=== PATIENT | male | born 1965 | race Caucasian/White ===

== ENCOUNTER 2023-02-07 10:49 | Observation (INO) | payer OTHER ==
[2023-02-07 11:37] LABS: INR 0.9 (<1.2); Partial Thromboplastin Time 22.3 sec (22.0-30.0); Prothrombin Time 9.8 sec (9.0-12.0)
[2023-02-07 11:40] LABS: Albumin 4.1 g/dL (3.5-5.0); Magnesium 1.8 mg/dL (1.6-2.3); Potassium 4.2 mmol/L (3.5-5.1); Total Bilirubin 0.3 mg/dL (0.2-1.3); Total Protein 6.6 g/dL (6.3-8.2)
--- NOTE | 2023-02-07 11:55 | XR ---
EXAMINATION TYPE: XR chest 2V DATE OF EXAM: 02/07/2023 11:45 AM COMPARISON: None TECHNIQUE: XR chest 2V Frontal and lateral views of the chest. CLINICAL INDICATION:Male, 57 years old with history of Chest Pain; FINDINGS: Lungs/Pleura: There is no evidence of pleural effusion, focal consolidation, or pneumothorax. Pulmonary vascularity: Unremarkable. Heart/mediastinum: Cardiomediastinal silhouette is unremarkable. Musculoskeletal: No acute osseous pathology. IMPRESSION: No acute cardiopulmonary disease/process.
[2023-02-07 12:03] LABS: Basophils % (A) 0 %; Eosinophils # (A) 0.1 k/uL (0-0.7); Eosinophils % (A) 1 %; HCT 33.1 % (39.0-53.0); HGB 11.2 gm/dL (13.0-17.5); Lymphocytes # (A) 1.6 k/uL (1.0-4.8); Lymphocytes % (A) 19 %; MCH 32.6 pg (25.0-35.0); MCHC 33.8 g/dL (31.0-37.0); MCV 96.5 fL (80.0-100.0); Mean Platelet Volume 7.4; Monocytes # (A) 0.7 k/uL (0-1.0); Monocytes % (A) 8 %; Neutrophils # (A) 6.1 k/uL (1.3-7.7); Neutrophils % (A) 70 %; Platelet Count 270 k/uL (150-450); RBC 3.43 m/uL (4.30-5.90); RDW 12.5 % (11.5-15.5); WBC 8.7 k/uL (3.8-10.6)
[2023-02-07] MEDS ORDERED: ASPIRIN 81 MG PO STA (13:34)
[2023-02-07] MEDS ORDERED: NITROGLYCERIN SL TABS 0.4 MG TAB SUBLINGUAL PRN (13:34)
[2023-02-07] MEDS ORDERED: SODIUM CHLORIDE 0.9% 500 ML 500 ML IV STA (13:35)
[2023-02-07] MEDS ORDERED: SODIUM CHLORIDE 0.9% 1,000 ML IV STA (13:41)
--- NOTE | 2023-02-07 13:54 | ED ---
General Adult HPI - General Chief complaint: Chest Pain Stated complaint: Chest Pain Time Seen by Provider: 02/07/23 13:25 Source: patient, RN notes reviewed, old records reviewed Mode of arrival: ambulatory Limitations: no limitations - History of Present Illness Initial comments: Patient is a 57-year-old male with past medical history remarkable for diabetes who presents emergency Department complaining of chest pain, shortness of breath that began last night. States he has had this chest pain intermittently over the last few months, however it has been more persistent over the last day. States it normally lasts for 5 minutes and goes away, however he had it this morning at approximately 2 AM. States his left-sided chest pain, sharp in natu re, not worse with movement. No palliative or provocative factors. Does feel short of breath with it. Denies any radiation of the pain. It is located at the left side of his chest. Denies any nausea, vomiting, diaphoresis. No history cardiac disease. Cardiac disease in the family. Has no other acute complaints at this time patient was worked up in triage initially and I evaluated him when he was placed in the room. States the pain is less at this moment, however has been persistent all day. - Related Data Home Medications Medication Instructions Recorded Confirmed Cholecalciferol [Vitamin D3 (25 50 mcg PO DAILY 02/07/23 02/07/23 Mcg = 1000 Iu)] Ferrous Sulfate [Feosol] 325 mg PO DAILY 02/07/23 02/07/23 Folic Acid 1 mg PO DAILY 02/07/23 02/07/23 Insulin Glargine,Hum.rec.anlog 30 units SQ HS 02/07/23 02/07/23 [Lantus Solostar Pen] Insulin Regular, Human [Novolin R] See Protocol SQ ACHS 02/07/23 02/07/23 Levothyroxine Sodium [Synthroid] 200 mcg PO DAILY 02/07/23 02/07/23 Losartan [Cozaar] 25 mg PO DAILY 02/07/23 02/07/23 Omeprazole 20 mg PO DAILY 02/07/23 02/07/23 Oxybutynin Chloride 5 mg PO DAILY 02/07/23 02/07/23 Simvastatin [Zocor] 40 mg PO DAILY 02/07/23 02/07/23 Allergies Allergy/AdvReac Type Severity Reaction Status Date / Time No Known Allergies Allergy Verified 02/07/23 15:16 Review of Systems ROS Statement: Those systems with pertinent positive or pertinent negative responses have been documented in the HPI. Review of Systems: CONST: Denies fever EYES: Denies blurry vision ENT: Denies nasal congestion C/V: Endorses chest pain RESP: Denies shortness of breath GI: Denies abdominal pain : Denies dysuria SKIN: Denies rash. MSK: Denies joint pain. NEURO: Denies headache ROS Other: All systems not noted in ROS Statement are negative. Past Medical History Past Medical History: Diabetes Mellitus History of Any Multi-Drug Resistant Organisms: None Reported Past Surgical History: No Surgical Hx Reported Past Psychological History: No Psychological Hx Reported Smoking Status: Former smoker Past Alcohol Use History: None Reported Past Drug Use History: None Reported General Exam - General Exam Comments Initial Comments: General: Appears in no acute distress. HEAD: Normal with no signs of head trauma. EYES: PERRLA, EOMI, conjunctiva normal, no discharge. ENT: Hearing grossly intact, normal oropharynx. RESPIRATORY: Clear breath sounds bilaterally. No wheezes, rales, or rhonchi. C/V: Regular rate and rhythm. S1 and S2 auscultated, no edema, peripheral pulses 2+ and intact throughout ABD: Abd is soft, nontender, nondistended EXT: Normal range of motion, no obvious deformity SKIN: No rashes or lesions observed on exposed skin. NEURO: Alert and oriented x 4. Cranial nerves II-XII intact. No focal sensory or strength deficits. Limitations: no limitations Course Vital Signs 02/07/23 02/07/23 10:54 15:00 Temperature 97 F L Pulse Rate 101 H 53 L Respiratory 18 18 Rate Blood Pressure 124/76 144/84 O2 Sat by Pulse 99 96 Oximetry Medical Decision Making - Medical Decision Making Was pt. sent in by a medical professional or institution (, PA, [employer] [facility], urgent care, hospital, or fci...) When possible be specific @ -No Did you speak to anyone other than the patient for history (EMS, parent, family, police, friend...)? What history was obtained from this source @ -No Did you review nursing and triage notes (agree or disagree)? Why? @ -I reviewed and agree with nursing and triage notes Were old charts reviewed (outside hosp., previous admission, EMS record, old EKG, old radiological studies, urgent care reports/EKG's, fci records)? Report findings @ -No old charts were reviewed Differential Diagnosis (chest pain, altered mental status, abdominal pain women, abdominal pain men, vaginal bleeding, weakness, fever, dyspnea, syncope, headache, dizziness, GI bleed, back pain, seizure, CVA, palpatations, mental health, musculoskeletal)? @ -Differential Chest Pain: Stable Angina, Unstable Angina, STEMI, NSTEMI Aortic Dissection, Pneumothorax, Musculoskeletal, Esophageal Spasm GERD, Cholecystitis, Pancreatitis, Zoster, this is not meant to be an all-inclusive list. EKG interpreted by me (3pts min.). @ -As above X-rays interpreted by me (1pt min.). @ -Chest x-ray reveals no obvious acute cardiopulmonary process. CT interpreted by me (1pt min.). @ -None done U/S interpreted by me (1pt. min.). @ -None done What testing was considered but not performed or refused? (CT, X-rays, U/S, labs)? Why? @ -None What meds were considered but not given or refused? Why? @ -None Did you discuss the management of the patient with other professionals (professionals i.e. , PA, [employer] [facility], lab, RT, psych nurse, social worker school, dehydrator tender, teacher, intelligence support officer, top case assembler)? Give summary @ -No Was smoking cessation discussed for >3mins.? @ -No Was critical care preformed (if so, how long)? @ -No Were there social determinants of health that impacted care today? How? (Homelessness, low income, unemployed, alcoholism, drug addiction, transportation, low edu. Level, literacy, decrease access to med. care, [facility], rehab)? @ -No Was there de-escalation of care discussed even if they declined (Discuss DNR or withdrawal of care, Hospice)? DNR status @ -No What co-morbidities impacted this encounter? (DM, HTN, Smoking, COPD, CAD, Cancer, CVA, ARF, Chemo, Hep., AIDS, mental health diagnosis, sleep apnea, morbid obesity)? @ -None Was patient admitted / discharged? Hospital course, mention meds given and route, prescriptions, significant lab abnormalities, going to OR and other pertinent info. @ -Based on the patient's presentation and physical exam, I'm concerned for croup him etiology for his current symptoms. Workup was started in triage. I evaluated patient was placed in room 17. Patient's laboratory studies are remarkable for a mild anemia with a hemoglobin 11.2. Troponin is undetectable. D-dimer is within normal limits for the patient. Patient is hyperglycemic. No other findings at this time on labs. Chest x-ray unremarkable. EKG within acceptable limits. Patient is still having chest pain. We will trial him with a dose of aspirin as well as nitroglycerin tablets. He was in agreement this plan. Vital signs within acceptable limits. Heart score is boarderline 4. Patient's chest pain did improve to a more manageable 2 out of 10 with nitroglycerin tablets. We will start him on Nitropaste. Due to his elevated heart score as well as his response to nitro, didn't want to admit him to the hospital for cardiac observation. He was in agreement this plan. We'll trend his troponin. Cardiology will be consulted to evaluate him the morning. I spoke with the admitting physician, Dr. Kim who accepted the patient. Patient was admitted in stable condition. Undiagnosed new problem with uncertain prognosis? @ -No Drug Therapy requiring intensive monitoring for toxicity (Heparin, Nitro, Insulin, Cardizem)? @ -No Were any procedures done? @ -No Diagnosis/symptom? @ -Chest pain Acute, or Chronic, or Acute on Chronic? @ -Acute Uncomplicated (without systemic symptoms) or Complicated (systemic symptoms)? @ -Uncomplicated Side effects of treatment? @ -No Exacerbation, Progression, or Severe Exacerbation? @ -No Poses a threat to life or bodily function? How? (Chest pain, USA, ID, pneumonia, PE, COPD, DKA, ARF, appy, cholecystitis, CVA, Diverticulitis, Homicidal, Suicidal, threat to staff... and all critical care pts) @ - Yes potentally, depending on the etiology - Lab Data Result diagrams: 02/07/23 11:15 02/07/23 11:15 Lab Results 02/07/23 02/07/23 02/07/23 Range/Units 11:15 11:15 11:15 WBC 8.7 (3.8-10.6) k/uL RBC 3.43 L (4.30-5.90) m/uL Hgb 11.2 L (13.0-17.5) gm/dL Hct 33.1 L (39.0-53.0) % MCV 96.5 (80.0-100.0) fL MCH 32.6 (25.0-35.0) pg MCHC 33.8 (31.0-37.0) g/dL RDW 12.5 (11.5-15.5) % Plt Count 270 (150-450) k/uL MPV 7.4 Neutrophils % 70 % Lymphocytes % 19 % Monocytes % 8 % Eosinophils % 1 % Basophils % 0 % Neutrophils # 6.1 (1.3-7.7) k/uL Lymphocytes # 1.6 (1.0-4.8) k/uL Monocytes # 0.7 (0-1.0) k/uL Eosinophils # 0.1 (0-0.7) k/uL Basophils # 0.0 (0-0.2) k/uL PT 9.8 (9.0-12.0) sec INR 0.9 (<1.2) APTT 22.3 (22.0-30.0) sec D-Dimer (<0.60) mg/L FEU Sodium 135 L (137-145) mmol/L Potassium 4.2 (3.5-5.1) mmol/L Chloride 105 (98-107) mmol/L Carbon Dioxide 18 L (22-30) mmol/L Anion Gap 12 mmol/L BUN 26 H (9-20) mg/dL Creatinine 1.23 (0.66-1.25) mg/dL Est GFR (CKD-EPI)AfAm 76 (>60 ml/min/1.73 sqM) Est GFR (CKD-EPI)NonAf 66 (>60 ml/min/1.73 sqM) Glucose 380 H (74-99) mg/dL Calcium 9.0 (8.4-10.2) mg/dL Magnesium 1.8 (1.6-2.3) mg/dL Total Bilirubin 0.3 (0.2-1.3) mg/dL AST 29 (17-59) U/L ALT 28 (4-49) U/L Alkaline Phosphatase 112 (38-126) U/L Troponin I (0.000-0.034) ng/mL Total Protein 6.6 (6.3-8.2) g/dL Albumin 4.1 (3.5-5.0) g/dL 02/07/23 02/07/23 Range/Units 11:15 11:15 WBC (3.8-10.6) k/uL RBC (4.30-5.90) m/uL Hgb (13.0-17.5) gm/dL Hct (39.0-53.0) % MCV (80.0-100.0) fL MCH (25.0-35.0) pg MCHC (31.0-37.0) g/dL RDW (11.5-15.5) % Plt Count (150-450) k/uL MPV Neutrophils % % Lymphocytes % % Monocytes % % Eosinophils % % Basophils % % Neutrophils # (1.3-7.7) k/uL Lymphocytes # (1.0-4.8) k/uL Monocytes # (0-1.0) k/uL Eosinophils # (0-0.7) k/uL Basophils # (0-0.2) k/uL PT (9.0-12.0) sec INR (<1.2) APTT (22.0-30.0) sec D-Dimer 0.39 (<0.60) mg/L FEU Sodium (137-145) mmol/L Potassium (3.5-5.1) mmol/L Chloride (98-107) mmol/L Carbon Dioxide (22-30) mmol/L Anion Gap mmol/L BUN (9-20) mg/dL Creatinine (0.66-1.25) mg/dL Est GFR (CKD-EPI)AfAm (>60 ml/min/1.73 sqM) Est GFR (CKD-EPI)NonAf (>60 ml/min/1.73 sqM) Glucose (74-99) mg/dL Calcium (8.4-10.2) mg/dL Magnesium (1.6-2.3) mg/dL Total Bilirubin (0.2-1.3) mg/dL AST (17-59) U/L ALT (4-49) U/L Alkaline Phosphatase (38-126) U/L Troponin I <0.012 (0.000-0.034) ng/mL Total Protein (6.3-8.2) g/dL Albumin (3.5-5.0) g/dL - EKG Data -: EKG Interpreted by Me EKG Comments: 12-lead Electrocardiogram Interpretation Note EKG was reviewed and interpreted by myself. 12-lead ECG performed at 1059 is interpreted by me as revealing normal sinus rhythm at a rate of 75 beats per minute. Celina is normal. HI interval is 143 ms, QRS duration is 87 ms, QTc is 396 ms.. There were no ST or T wave abnormalities to suggest myocardial ischemia or injury. R wave progression across the precordium was satisfactory. By my interpretation this EKG is non-diagnostic for acute ischemia. Disposition Clinical Impression: Chest pain Disposition: ADMITTED IP TO THIS HOSP Condition: Stable Time of Disposition: 14:30
[2023-02-07] MEDS ORDERED: NALOXONE 0.4 MG/ML 1 ML VIAL IV PRN (14:56)
[2023-02-07] MEDS ORDERED: DEXTROSE 50% SYRINGE 50 ML IVP PRN ×4 (14:59→21:01)
[2023-02-07 15:57] LABS: Glucose,Whole Blood 297 mg/dL (70-110)
[2023-02-07 17:19] LABS: Glucose,Whole Blood 292 mg/dL (70-110)
[2023-02-07] MEDS: HEPARIN SODIUM,PORCINE/PF 5,000 UNIT/0.5 ML SYRINGE SQ SCH ×2 (17:28→21:18)
[2023-02-07] MEDS: NITROGLYCERIN OINT 1 INCH/GM PACKET TOPICAL SCH (17:29)
[2023-02-07] MEDS ORDERED: INSULIN ASPART (NovoLOG) 100 UNIT/ML VIAL SQ SCH (17:30)
[2023-02-07 20:25] LABS: Glucose,Whole Blood 324 mg/dL (70-110)
[2023-02-07] MEDS ORDERED: traZODone HCL 100 MG TAB PO SCH (21:00)
[2023-02-07] MEDS ORDERED: INSULIN DETEMIR (LEVEMIR) 100 UNIT/ML SYR SQ SCH ×2 (21:00)
[2023-02-07] MEDS: INSULIN ASPART (NovoLOG) 100 UNIT/ML VIAL SQ SCH (21:16)
--- NOTE | 2023-02-07 23:39 | P.HPIM ---
History of Present Illness H&P Date: 02/07/23 Chief Complaint: Chest pain Patient is a 57-year-old male with a known history of diabetes type 2 insulin- dependent, hypertension, hyperlipidemia, hypothyroidism and prior history of smoking presents to ER with complaints of chest pain Started around 2 AM last night. Patient is also having shortness of breath. Patient states that he has been having on and off chest pain for the past 5 months. He is to get chest pain every month mainly left-sided's chest pain, sharp, squeezing type and pain lasts for about 5 minutes presented with shortness of breath and relieved by itself. For the last month he has been having pains once or twice a week and last night his pain is back again longer duration. Patient came to ER for evaluation. Denies any radiation of the pain. Denies any associated nausea vomiting or diaphoresis or dizziness or lightheadedness. Denies any prior history of heart disease. Any recent illnesses. No cough or sputum production. No leg swelling. On admission patient was tachycardic with heart rate 101. Chest x-ray showed no acute cardiopulmonary disease/process. EKG showed sinus rhythm with nonspecific T wave abnormality. Laboratory test showed WBC 8.7 hemoglobin 11.2 and platelets 270, D-dimer level is 0.39 Sodium 135, potassium 4.2 chloride 105 bicarb is 18 BUN 26 and creatinine 1.23 and blood sugar was 380 on admission Magnesium 1.8 and laboring after not elevated Troponins x3 negative and TSH level is 2.090 Atypical chest pain. Rule out ACS Hyperglycemia with uncontrolled diabetes type 2 insulin-dependent A1c level is 10.3 Normocytic anemia with hemoglobin of 11.2 Hypertension Hypothyroidism Hyperlipidemia Prior history of smoking DVT prophylaxis with heparin subcu GI prophylaxis patient is already on Protonix Plan: Patient will be continued on telemetry monitoring. Was given IV hydration in the ER. Serial troponins and EKG and cardiology evaluation for chest pain. Started back on Levemir and preprandial insulin and sliding scale was added for blood pressure control. Titrate dose as needed. Follow-up closely. Past Medical History Past Medical History: Diabetes Mellitus History of Any Multi-Drug Resistant Organisms: None Reported Past Surgical History: No Surgical Hx Reported Past Anesthesia/Blood Transfusion Reactions: No Reported Reaction Past Psychological History: No Psychological Hx Reported Smoking Status: Former smoker Past Alcohol Use History: None Reported Past Drug Use History: None Reported Medications and Allergies Home Medications Medication Instructions Recorded Confirmed Type Cholecalciferol [Vitamin D3 (25 50 mcg PO DAILY 02/07/23 02/07/23 History Mcg = 1000 Iu)] Ferrous Sulfate [Feosol] 325 mg PO DAILY 02/07/23 02/07/23 History Folic Acid 1 mg PO DAILY 02/07/23 02/07/23 History Insulin Glargine,Hum.rec.anlog 30 units SQ HS 02/07/23 02/07/23 History [Lantus Solostar Pen] Insulin Regular, Human [Novolin R] See Protocol SQ ACHS 02/07/23 02/07/23 History Levothyroxine Sodium [Synthroid] 200 mcg PO DAILY 02/07/23 02/07/23 History Losartan [Cozaar] 25 mg PO DAILY 02/07/23 02/07/23 History Omeprazole 20 mg PO DAILY 02/07/23 02/07/23 History Oxybutynin Chloride 5 mg PO DAILY 02/07/23 02/07/23 History Simvastatin [Zocor] 40 mg PO DAILY 02/07/23 02/07/23 History Allergies Allergy/AdvReac Type Severity Reaction Status Date / Time No Known Allergies Allergy Verified 02/07/23 15:16 Physical Exam Vitals: Vital Signs Temp Pulse Pulse Resp BP BP Pulse Ox 02/07/23 18:55 97.6 F 62 16 134/66 98 02/07/23 17:10 98.1 F 57 L 16 137/78 98 02/07/23 15:00 53 L 18 144/84 96 02/07/23 10:54 97 F L 101 H 18 124/76 99 Intake and Output 02/07/23 02/07/23 02/08/23 14:59 22:59 06:59 Intake Total 240 Balance 240 Intake: Oral 240 Other: # Voids 1 Weight 74.843 kg 74.843 kg Results CBC & Chem 7: 02/07/23 11:15 02/07/23 11:15 Labs: Abnormal Lab Results - Last 24 Hours (Table) 02/07/23 02/07/23 02/07/23 Range/Units 11:15 11:15 11:15 RBC 3.43 L (4.30-5.90) m/uL Hgb 11.2 L (13.0-17.5) gm/dL Hct 33.1 L (39.0-53.0) % Sodium 135 L (137-145) mmol/L Carbon Dioxide 18 L (22-30) mmol/L BUN 26 H (9-20) mg/dL Glucose 380 H (74-99) mg/dL POC Glucose (mg/dL) (70-110) mg/dL Hemoglobin A1c 10.3 H (0.0-6.0) % 02/07/23 02/07/23 02/07/23 Range/Units 15:54 17:18 20:24 RBC (4.30-5.90) m/uL Hgb (13.0-17.5) gm/dL Hct (39.0-53.0) % Sodium (137-145) mmol/L Carbon Dioxide (22-30) mmol/L BUN (9-20) mg/dL Glucose (74-99) mg/dL POC Glucose (mg/dL) 297 H 292 H 324 H (70-110) mg/dL Hemoglobin A1c (0.0-6.0) % Thrombosis Risk Factor Assmnt - Choose All That Apply Any of the Below Risk Factors Present?: Yes Each Factor Represents 1 point: Age 41-60 years Other Risk Factors: No Other congenital or acquired thrombophilia - If yes, enter type in comment: No Thrombosis Risk Factor Assessment Total Risk Factor Score: 1 Thrombosis Risk Factor Assessment Level: Low Risk
[2023-02-08] MEDS: NITROGLYCERIN OINT 1 INCH/GM PACKET TOPICAL SCH ×2 (01:05→08:19)
[2023-02-08 06:01] LABS: Glucose,Whole Blood 360 mg/dL (70-110)
[2023-02-08] MEDS: INSULIN ASPART (NovoLOG) 100 UNIT/ML VIAL SQ SCH ×2 (06:04→12:01)
[2023-02-08] MEDS ORDERED: LEVOTHYROXINE 100 MCG TAB PO SCH (06:30)
[2023-02-08] MEDS ORDERED: INSULIN ASPART (NovoLOG) 100 UNIT/ML VIAL SQ SCH ×3 (07:30→21:30)
[2023-02-08] MEDS ORDERED: PANTOPRAZOLE 40 MG TABLET PO SCH (07:30)
--- NOTE | 2023-02-08 08:11 | P.CRDCN ---
History of Present Illness Consult date: 02/08/23 Chief complaint: Chest pain History of present illness: The patient is a very pleasant 57-year-old gentleman with a past medical history significant for diabetes and hypertension and dyslipidemia and significant family history of coronary artery disease presented to the emergency department complaining of chest discomfort. That started a few months ago and lately for the last few weeks has been more often and more intense. The patient described the discomfort as a pressure in the middle of the chest with no radiation and no associated symptoms. The only and concerning part about is that the discomfort is not exertion related and has been happening mostly with resting and not with exertion since it was started. No specific symptoms of shortness of breath or dizziness or lightheadedness or any feeling of heart racing or fluttering or any presyncope or syncope. He presented to the emergency department where he was given some nitroglycerin sublingual was mild improvement but not complete resolution of the chest discomfort. He underwent a workup including EKG showing sinus rhythm with nonspecific ST and T wave abnormalities and blood work also included troponin came in to be unremarkable the chest x-ray did not show any acute abnormalities. The patient was seen and evaluated this morning. His vitals are stable. The examination is remarkable for regular rhythm with clear breathing sounds bilaterally and soft nontender abdomen and no lower extremity edema noted Assessment Intermittent episodes of chest discomfort appeared to be atypical Multiple risk factors for CAD including diabetes and hypertension and Significant family history of CAD Plan Acute coronary event was ruled out Continue the current medical regimen Follow-up on the echocardiogram which was performed earlier Obtain a stress test to rule out severe CAD Past Medical History Past Medical History: Diabetes Mellitus History of Any Multi-Drug Resistant Organisms: None Reported Past Surgical History: No Surgical Hx Reported Past Anesthesia/Blood Transfusion Reactions: No Reported Reaction Past Psychological History: No Psychological Hx Reported Smoking Status: Former smoker Past Alcohol Use History: None Reported Past Drug Use History: None Reported Medications and Allergies Home Medications Medication Instructions Recorded Confirmed Type Cholecalciferol [Vitamin D3 (25 50 mcg PO DAILY 02/07/23 02/07/23 History Mcg = 1000 Iu)] Ferrous Sulfate [Feosol] 325 mg PO DAILY 02/07/23 02/07/23 History Folic Acid 1 mg PO DAILY 02/07/23 02/07/23 History Insulin Glargine,Hum.rec.anlog 30 units SQ HS 02/07/23 02/07/23 History [Lantus Solostar Pen] Insulin Regular, Human [Novolin R] See Protocol SQ ACHS 02/07/23 02/07/23 History Levothyroxine Sodium [Synthroid] 200 mcg PO DAILY 02/07/23 02/07/23 History Losartan [Cozaar] 25 mg PO DAILY 02/07/23 02/07/23 History Omeprazole 20 mg PO DAILY 02/07/23 02/07/23 History Oxybutynin Chloride 5 mg PO DAILY 02/07/23 02/07/23 History Simvastatin [Zocor] 40 mg PO DAILY 02/07/23 02/07/23 History Allergies Allergy/AdvReac Type Severity Reaction Status Date / Time No Known Allergies Allergy Verified 02/07/23 15:16 Physical Exam Vitals: Vital Signs Temp Pulse Pulse Resp BP BP Pulse Ox 02/08/23 02:21 97.8 F 64 15 128/65 97 02/07/23 18:55 97.6 F 62 16 134/66 98 02/07/23 17:10 98.1 F 57 L 16 137/78 98 02/07/23 15:00 53 L 18 144/84 96 02/07/23 10:54 97 F L 101 H 18 124/76 99 Intake and Output 02/07/23 02/08/23 02/08/23 22:59 06:59 14:59 Intake Total 240 Balance 240 Intake: Oral 240 Other: # Voids 1 1 Weight 74.843 kg Results 02/07/23 11:15 02/07/23 11:15 Cardiac Enzymes 02/07/23 02/07/23 02/07/23 Range/Units 11:15 11:15 15:30 AST 29 (17-59) U/L Troponin I <0.012 <0.012 (0.000-0.034) ng/mL 02/07/23 Range/Units 18:19 AST (17-59) U/L Troponin I <0.012 (0.000-0.034) ng/mL Coagulation 02/07/23 Range/Units 11:15 PT 9.8 (9.0-12.0) sec APTT 22.3 (22.0-30.0) sec CBC 02/07/23 Range/Units 11:15 WBC 8.7 (3.8-10.6) k/uL RBC 3.43 L (4.30-5.90) m/uL Hgb 11.2 L (13.0-17.5) gm/dL Hct 33.1 L (39.0-53.0) % Plt Count 270 (150-450) k/uL Comprehensive Metabolic Panel 02/07/23 Range/Units 11:15 Sodium 135 L (137-145) mmol/L Potassium 4.2 (3.5-5.1) mmol/L Chloride 105 (98-107) mmol/L Carbon Dioxide 18 L (22-30) mmol/L BUN 26 H (9-20) mg/dL Creatinine 1.23 (0.66-1.25) mg/dL Glucose 380 H (74-99) mg/dL Calcium 9.0 (8.4-10.2) mg/dL AST 29 (17-59) U/L ALT 28 (4-49) U/L Alkaline Phosphatase 112 (38-126) U/L Total Protein 6.6 (6.3-8.2) g/dL Albumin 4.1 (3.5-5.0) g/dL Current Medications Generic Name Dose Route Start Last Admin Trade Name Freq PRN Reason Stop Dose Admin Atorvastatin Calcium 20 mg 02/08/23 09:00 Atorvastatin 20 Mg Tab PO DAILY [facility] Cholecalciferol 50 mcg 02/08/23 09:00 Cholecalciferol 25 Mcg (1000 Iu) Tablet PO DAILY [facility] Dextrose/Water 25 ml 02/07/23 14:59 Dextrose 50% Syringe 50 Ml IVP PER PROTOCOL PRN Hypoglycemia Protocol Dextrose/Water 50 ml 02/07/23 14:59 Dextrose 50% Syringe 50 Ml IVP PER PROTOCOL PRN Hypoglycemia Protocol Dextrose/Water 25 ml 02/07/23 21:01 Dextrose 50% Syringe 50 Ml IVP PER PROTOCOL PRN Hypoglycemia Protocol Dextrose/Water 50 ml 02/07/23 21:01 Dextrose 50% Syringe 50 Ml IVP PER PROTOCOL PRN Hypoglycemia Protocol Ferrous Sulfate 325 mg 02/08/23 09:00 Ferrous Sulfate 325 Mg Tab PO DAILY [facility] Folic Acid 1 mg 02/08/23 09:00 Folic Acid 1 Mg Tab PO DAILY [facility] Heparin Sodium (Porcine) 5,000 unit 02/07/23 16:00 02/07/23 21:18 Heparin Sodium,Porcine/Pf 5,000 Unit/0.5 Ml Syringe SQ 5,000 unit Q8HR [facility] Administration Insulin Aspart 7 unit 02/08/23 07:30 02/08/23 06:05 Insulin Aspart (Novolog) 100 Unit/Ml Vial 0.1 unit/kg (7 unit) Not Given SQ AC-TID [facility] Insulin Aspart 0 unit 02/07/23 21:10 02/08/23 06:04 Insulin Aspart (Novolog) 100 Unit/Ml Vial SQ 5 unit ACHS [facility] Administration Protocol Insulin Detemir 30 unit 02/07/23 21:00 02/07/23 21:16 Insulin Detemir (Levemir) 100 Unit/Ml Syr SQ 30 unit HS [facility] Administration Levothyroxine Sodium 200 mcg 02/08/23 06:30 02/08/23 05:59 Levothyroxine 100 Mcg Tab PO 200 mcg DAILY@0630 [facility] Administration Losartan Potassium 25 mg 02/08/23 09:00 Losartan 25 Mg Tab PO DAILY [facility] Naloxone HCl 0.2 mg 02/07/23 14:56 Naloxone 0.4 Mg/Ml 1 Ml Vial IV Q2M PRN Opioid Reversal Nitroglycerin 0.4 mg 02/07/23 13:34 02/07/23 14:15 Nitroglycerin Sl Tabs 0.4 Mg Tab SUBLINGUAL 0.4 mg Q5M PRN Administration Chest Pain Nitroglycerin 0.5 inch 02/07/23 16:00 02/08/23 01:05 Nitroglycerin Oint 1 Inch/Gm Packet TOPICAL Not Given Q8HR [facility] Oxybutynin Chloride 5 mg 02/08/23 09:00 Oxybutynin Chloride 5 Mg Tab PO DAILY [facility] Pantoprazole Sodium 40 mg 02/08/23 07:30 02/08/23 05:59 Pantoprazole 40 Mg Tablet PO 40 mg [id number] [facility] Administration Trazodone HCl 100 mg 02/07/23 21:00 02/07/23 21:16 Trazodone Hcl 100 Mg Tab PO 100 mg HS [facility] Administration Intake and Output 02/07/23 02/08/23 02/08/23 22:59 06:59 14:59 Intake Total 240 Balance 240 Intake: Oral 240 Other: # Voids 1 1 Weight 74.843 kg 02/07/23 11:15 02/07/23 11:15
[2023-02-08] MEDS: HEPARIN SODIUM,PORCINE/PF 5,000 UNIT/0.5 ML SYRINGE SQ SCH (08:18)
[2023-02-08 08:28] VITALS: BP 128/66; PULSE 55; RESP 16; TEMP 98.4
[2023-02-08] MEDS ORDERED: OXYBUTYNIN CHLORIDE 5 MG TAB PO SCH (09:00)
[2023-02-08] MEDS ORDERED: ATORVASTATIN 20 MG TAB PO SCH (09:00)
[2023-02-08] MEDS ORDERED: LOSARTAN 25 MG TAB PO SCH (09:00)
[2023-02-08] MEDS ORDERED: FOLIC ACID 1 MG TAB PO SCH (09:00)
[2023-02-08] MEDS ORDERED: FERROUS SULFATE 325 MG TAB PO SCH (09:00)
[2023-02-08] MEDS ORDERED: CHOLECALCIFEROL 25 MCG (1000 IU) TABLET PO SCH (09:00)
[2023-02-08 09:26] LABS: African American GFR (CKD) 65.1 (60.0-200.0); Anion Gap 10.5 mmol/L (10.00-18.00); BUN/Creat Ratio 17.57 Ratio (12.00-20.00); Blood Urea Nitrogen 24.6 mg/dL (9.0-27.0); Calcium 9.5 mg/dL (8.7-10.3); Carbon Dioxide 18.5 mmol/L (20.0-27.5); Non-African American GFR(CKD) 56.2 (60.0-200.0); Potassium 4.9 mmol/L (3.5-5.5)
--- NOTE | 2023-02-08 10:20 | CA ---
Transthoracic Echo Report Name: Delonte Licona Age: 57 Gender: M : 1965 Exam Date: 02/08/2023 07:47 Exam Location: [place] [facility] Ht (in): 69 Wt (lb): 165 Ordering Physician: Nikki Alvarado Attending/Referring Phys: Bicycle Repairman Odette Hi RDCS Procedure CPT: Indications: Chest Pain Cardiac Hx: Technical Quality: Good Contrast 1: Total Dose (mL): Contrast 2: Total Dose (mL): MEASUREMENTS (Male / Female) Normal Values 2D ECHO LV Diastolic Diameter PLAX 4.8 cm 4.2 - 5.9 / 3.9 - 5.3 cm LV Systolic Diameter PLAX 3.0 cm IVS Diastolic Thickness 1.2 cm 0.6 - 1.0 / 0.6 - 0.9 cm LVPW Diastolic Thickness 1.0 cm 0.6 - 1.0 / 0.6 - 0.9 cm LV Relative Wall Thickness 0.4 RV Internal Dim ED PLAX 2.9 cm LA Systolic Diameter LX 3.5 cm 3.0 - 4.0 / 2.7 - 3.8 cm LV Diastolic Volume MOD BP 89.3 cm??? 67 - 155 / 56 - 104 cm??? LV Systolic Volume MOD BP 47.2 cm??? 22 - 58 / 19 - 49 cm??? LV Ejection Fraction MOD BP 47.1 % >= 55 % LV Diastolic Volume MOD 4C 115.4 cm??? LV Systolic Volume MOD 4C 50.7 cm??? LV Ejection Fraction MOD 4C 56.1 % LV Diastolic Length 4C 7.3 cm LV Systolic Length 4C 6.2 cm LV Diastolic Volume MOD 2C 67.7 cm??? LV Systolic Volume MOD 2C 42.9 cm??? LV Ejection Fraction MOD 2C 36.7 % LV Diastolic Length 2C 7.2 cm LV Systolic Length 2C 6.8 cm LA Volume 71.1 cm??? 18 - 58 / 22 - 52 cm??? M-MODE Aortic Root Diameter MM 3.7 cm MV E Point Septal Separation 1.4 cm AV Cusp Separation MM 2.3 cm DOPPLER MV Area PHT 3.1 cm??? Mitral E Point Velocity 70.2 cm/s Mitral A Point Velocity 85.1 cm/s Mitral E to A Ratio 0.8 MV Deceleration Time 246.4 ms MV E' Velocity 6.7 cm/s Mitral E to MV E' Ratio 10.4 TR Peak Velocity 213.6 cm/s TR Peak Gradient 18.2 mmHg Right Ventricular Systolic Press 23.2 mmHg FINDINGS Left Ventricle Left ventricular ejection fraction is estimated at 50-55 %. Left ventricular cavity size normal. Borderline left ventricular hypertrophy. No obvious regional wall motion abnormalities. Right Ventricle Normal right ventricular size and function. Right ventricular systolic pressure within normal limits. Right Atrium Normal right atrial size. Left Atrium Moderately increased left atrial volume. Mitral Valve Mitral valve thickened. Trace mitral regurgitation. Aortic Valve Trileaflet aortic valve. No aortic valve stenosis or regurgitation. Tricuspid Valve Structurally normal tricuspid valve. Mild tricuspid regurgitation. Pulmonic Valve Structurally normal pulmonic valve. Trace pulmonic regurgitation. Pericardium Normal pericardium. No pericardial effusion. Aorta Normal size aortic root and proximal ascending aorta. CONCLUSIONS Normal LV systolic function and normal RV systolic function Mild mitral valve prolapse with mild MR Previewed by: Dr. Ke Azevedo MD (Electronically Signed) Final Date: 08 February 2023 10:19
[2023-02-08 10:28] LABS: Basophils # (A) 0.02 X 10*3/uL (0.00-0.10); Basophils % (A) 0.2 %; Eosinophils # (A) 0.02 X 10*3/uL (0.04-0.35); Eosinophils % (A) 0.2 %; HCT 30.9 % (39.6-50.0); HGB 10.1 g/dL (13.0-17.0); Immature Grans, Automated 0.2 %; Lymphocytes # (A) 2.27 X 10*3/uL (0.90-5.00); Lymphocytes % (A) 25.1 %; MCH 31.3 pg (27.0-32.0); MCHC 32.7 g/dL (32.0-37.0); MCV 95.7 fL (80.0-97.0); Monocytes # (A) 0.98 X 10*3/uL (0.20-1.00); Monocytes % (A) 10.8 %; NRBC Per 100 WBC 0 /100 WBCS (0.0-0.0); Neutrophils # (A) 5.75 X 10*3/uL (1.80-7.70); Neutrophils % (A) 63.5 %; Platelet Count 271 X 10*3/uL (140-440); RBC 3.23 X 10*6/uL (4.40-5.60); RDW 12.4 % (11.5-14.5); WBC 9.06 X 10*3/uL (4.50-10.00)
[2023-02-08 11:23] VITALS: BMI 24.3
[2023-02-08 12:01] LABS: Glucose,Whole Blood 127 mg/dL (70-110)
--- NOTE | 2023-02-08 12:24 | NM ---
EXAMINATION TYPE: NM stress cardiolite complete DATE OF EXAM: 02/08/2023 COMPARISON: NONE HISTORY: Chest pain TECHNIQUE: After the intravenous administration of 9.7 mCi Tc 99m Sestamibi - Rest images obtained 4 5 minutes post injection. The patient exercised using a JAVED protocol and 1 minute prior to peak e xercise was injected with 25.3 mCi Tc 99m Sestamibi - Stress images obtained 20 minutes post injectio n. FINDINGS: Targeted heart rate was achieved during performance of the study. Review of stress and rest SPECT marie ges demonstrates no distinct perfusion abnormality. Gated analysis shows normal wall motion with an estimated left ventricular ejection fraction of 55 %. IMPRESSION: No scintigraphic evidence for reversible ischemia
--- NOTE | 2023-02-08 12:24 | CA ---
Exercise Nuclear Stress Test Report Name: Delonte Licona Exam Date: 02/08/2023 10:50 Exam Location: [place] [facility] Ht (in): 69 Wt (lb): 165 BSA: 1.90 Ordering Phys: Ke Azevedo MD Referring Phys: JULIA,, Technologist: Kurt Callejas Age: 57 Gender: M : 1965 Procedure CPT: Indications: Reflex order-Stress test ICD-10 Codes: Patient History: Medications: SEE CHART Meds past 24 hrs: Pretest Chest Pain: STRESS TEST Protocol Exercise Duration (min:sec): 09:[address] Depressions (mm): Angina Score: Gtz Score: Resting HR (bpm): 68 Peak HR (bpm): 140 Resting BP (mmHg): 116 / 68 Peak BP (mmHg): 196 / 68 MPHR: 165 Target HR: 140 % MPHR: 85 METS: 10.3 Total Dose: Peak Dose: Atropine: Double Product: 90102 BP Response: Stress Termination: TARGET HR REACHED/MAX EXERTION Stress Symptoms: NO SYMPTOMS Stress Summary: ECG ANALYSIS Resting ECG: Stress ECG: CONCLUSIONS Excellent exercise tolerance Normal EKG in response to exercise Dr. Ke Azevedo MD (Electronically Signed) Final Date: 08 February 2023 12:23
--- NOTE | 2023-02-12 12:19 | P.DS ---
Providers Date of admission: 02/07/23 14:56 Expected date of discharge: 02/08/23 Attending physician: Bethanie Kim Consults: 02/07/23 14:56 Consult Physician Routine Consulting Provider: [facility] Consult Reason/Comments: chest pain Do you want consulting provider notified?: Yes Primary care physician: Ramya Carrera [facility] Course: Final diagnosis Atypical chest pain. Ruled out ACS, negative stress test Hyperglycemia with uncontrolled diabetes type 2 insulin-dependent A1c level is 10.3 Normocytic anemia with hemoglobin of 11.2 Hypertension Hypothyroidism Hyperlipidemia Prior history of smoking DVT prophylaxis GI prophylaxis Discharge disposition Patient is being discharged in a stable condition with guarded prognosis to home. Patient will follow-up with Dr. Magdaleno Scruggs in the outpatient setting upon discharge. Patient is to continue with current medications and outpatient follow-up with cardiology as scheduled. Total time taken is greater than 35 minutes. Hospital course This is a 57-year-old male who was recently admitted with chest pain and ruled out ACS. Patient also evaluated by cardiology underwent stress echo and negati ve and has been cleared by cardiology for outpatient follow-up. Patient to continue on current medication regimen along with tighter glycemic control. Patient will continue on insulin and prescriptions were provided for refills. Patient instructed to follow-up with primary care provider on discharge. Please refer to cardiology no for further HPI. Currently no reports of chest pain, shortness of breath, or palpitations. Patient is afebrile. No reports of nausea or vomiting and patient is tolerating diet. Patient will be discharged home today. Physical exam: Gen: This is a 57-year-old male who is awake, alert and oriented 3, well- developed, well-nourished HEENT: Head is atraumatic, normocephalic. Pupils equal, round. Sclerae is anicteric. NECK: Supple. No JVD. No lymphadenopathy. No thyromegaly. LUNGS: Clear to auscultation. No wheezes or rhonchi. No intercostal retractions. HEART: Regular rate and rhythm. No murmur. ABDOMEN: Soft. Bowel sounds are present. No masses. No tenderness. EXTREMITIES: No pedal edema. No calf tenderness. NEUROLOGICAL: Patient is awake, alert and oriented x3. Cranial nerves 2 through 12 are grossly intact. Please refer to medication reconciliation sheet for a list of medications. The impression and plan of care has been dictated by Merary Vazquez, Nurse Practitioner as directed. Dr. Judy MD I have performed a history and examination and MDM of this patient, discussed the same with the dictator, and agree with the dictator's assessment and plan as written ,documented as a scribe. Based on total visit time, I have performed more than 50% of the visit. Patient Condition at Discharge: Stable Plan - Discharge Summary Discharge Rx Participant: No New Discharge Prescriptions: New INSULIN ASPART (NovoLOG) [NovoLOG (formulary)] 10 unit SQ AC-TID each Pantoprazole [Protonix] 40 mg PO AC-BRKFST #30 tab Continue Insulin Glargine,Hum.rec.anlog [Lantus Solostar Pen] 30 units SQ HS Levothyroxine Sodium [Synthroid] 200 mcg PO DAILY Insulin Regular, Human [Novolin R] See Protocol SQ ACHS Cholecalciferol [Vitamin D3 (25 Mcg = 1000 Iu)] 50 mcg PO DAILY Losartan [Cozaar] 25 mg PO DAILY Folic Acid 1 mg PO DAILY Ferrous Sulfate [Iron (65 MG Elemental)] 325 mg PO DAILY Simvastatin [Zocor] 40 mg PO DAILY Oxybutynin Chloride 5 mg PO DAILY Discontinued Omeprazole 20 mg PO DAILY Discharge Medication List Cholecalciferol [Vitamin D3 (25 Mcg = 1000 Iu)] 50 mcg PO DAILY 02/07/23 [History] Ferrous Sulfate [Iron (65 MG Elemental)] 325 mg PO DAILY 02/07/23 [History] Folic Acid 1 mg PO DAILY 02/07/23 [History] Insulin Glargine,Hum.rec.anlog [Lantus Solostar Pen] 30 units SQ HS 02/07/23 [History] Insulin Regular, Human [Novolin R] See Protocol SQ ACHS 02/07/23 [History] Levothyroxine Sodium [Synthroid] 200 mcg PO DAILY 02/07/23 [History] Losartan [Cozaar] 25 mg PO DAILY 02/07/23 [History] Oxybutynin Chloride 5 mg PO DAILY 02/07/23 [History] Simvastatin [Zocor] 40 mg PO DAILY 02/07/23 [History] INSULIN ASPART (NovoLOG) [NovoLOG (formulary)] 10 unit SQ AC-TID each 02/08/23 [Rx] Pantoprazole [Protonix] 40 mg PO AC-BRKFST #30 tab 02/08/23 [Rx] Follow up Appointment(s)/Referral(s): Ramya Carrera MD [Primary Care Provider] - 1-2 days Activity/Diet/Wound Care/Special Instructions: Activity Limited until follow-up Follow-up with primary care provider on discharge Continue taking medications as prescribed Continue 30 units at night of long-acting and 10 units subcu 3 times a day along with sliding scale Continue to monitor blood sugars closely Follow-up cardiology outpatient Discharge Disposition: HOME SELF-CARE
== END 2023-02-08 15:42 | disposition home or self-care (01) ==
LOC: EC 10:49 → 6NMEDSUR 14:56
PROVIDERS: ADMIT Internal Medicine; ATTEND Internal Medicine
DX: R07.89 Other chest pain (principal); R06.02 Shortness of breath; E11.65 Type 2 diabetes mellitus with hyperglycemia; D64.9 Anemia, unspecified; I10 Essential (primary) hypertension; E03.9 Hypothyroidism, unspecified; E78.5 Hyperlipidemia, unspecified; Z87.891 Personal history of nicotine dependence; Z82.49 Family history of ischemic heart disease and other diseases of the circulatory system; Z79.4 Long term (current) use of insulin; Z79.890 Hormone replacement therapy; Z79.899 Other long term (current) drug therapy
CPT/HCPCS: 96372 ×3; 96360; 99285; 36415; 94760; 93005; 93017; 93306; 85379; 80053; 80048; 84443; 83735; 84484; 85025 ×2; 85610; 85730; 83036; 71046; 78452; G0378 ×2; A9500; J1644 ×2

== ENCOUNTER 2023-09-18 09:21 | Emergency (ER) | payer OTHER ==
[2023-09-18 09:42] VITALS: TEMP 97.8
--- NOTE | 2023-09-18 10:06 | ED ---
General Adult HPI - General Chief complaint: Extremity Injury, Lower Stated complaint: leg pain Time Seen by Provider: 09/18/23 09:52 Source: patient, RN notes reviewed Mode of arrival: ambulatory Limitations: no limitations - History of Present Illness Initial comments: Patient is a 58-year-old male presented to the ER with a chief complaint of left leg pain. Patient states he has been experiencing pain in his left leg for about 2 weeks. He describes it as an achy constant pain in his left thigh and calf which is made worse by sitting still. Patient states he also gets bilateral claudication intermittently. He denies any recent travel or long car rides. He denies swelling, paresthesias, weakness, or trauma. Patient admits to vaping and is a former smoker. Patient denies any shortness of breath, chest pain, palpitations, abdominal pain, peripheral edema. - Related Data Home Medications Medication Instructions Recorded Confirmed Cholecalciferol [Vitamin D3 (25 50 mcg PO DAILY 02/07/23 02/07/23 Mcg = 1000 Iu)] Ferrous Sulfate [Iron (65 MG 325 mg PO DAILY 02/07/23 02/07/23 Elemental)] Folic Acid 1 mg PO DAILY 02/07/23 02/07/23 Insulin Glargine,Hum.rec.anlog 30 units SQ HS 02/07/23 02/07/23 [Lantus Solostar Pen] Insulin Regular, Human [Novolin R] See Protocol SQ ACHS 02/07/23 02/07/23 Levothyroxine Sodium [Synthroid] 200 mcg PO DAILY 02/07/23 02/07/23 Losartan [Cozaar] 25 mg PO DAILY 02/07/23 02/07/23 Simvastatin [Zocor] 40 mg PO DAILY 02/07/23 02/07/23 oxyBUTYnin chloride 5 mg PO DAILY 02/07/23 02/07/23 Previous Rx's Medication Instructions Recorded INSULIN ASPART (NovoLOG) [NovoLOG 10 unit SQ AC-TID each 02/08/23 (formulary)] Pantoprazole [Protonix] 40 mg PO AC-BRKFST #30 tab 02/08/23 Cyclobenzaprine [Flexeril] 10 mg PO TID PRN #15 tab 09/18/23 Allergies Allergy/AdvReac Type Severity Reaction Status Date / Time No Known Allergies Allergy Verified 09/18/23 09:26 Review of Systems ROS Statement: Those systems with pertinent positive or pertinent negative responses have been documented in the HPI. ROS Other: All systems not noted in ROS Statement are negative. Past Medical History Past Medical History: Diabetes Mellitus History of Any Multi-Drug Resistant Organisms: None Reported Past Surgical History: No Surgical Hx Reported Past Anesthesia/Blood Transfusion Reactions: No Reported Reaction Past Psychological History: No Psychological Hx Reported Smoking Status: Vaper Past Alcohol Use History: None Reported Past Drug Use History: None Reported General Exam Limitations: no limitations General appearance: alert, in no apparent distress Respiratory exam: Present: normal lung sounds bilaterally. Absent: respiratory distress, wheezes, rales, rhonchi, stridor Cardiovascular Exam: Present: regular rate, normal rhythm, normal heart sounds. Absent: systolic murmur, diastolic murmur, rubs, gallop, clicks GI/Abdominal exam: Present: soft, normal bowel sounds. Absent: distended, tenderness, guarding, rebound, rigid Extremities exam: Present: other (Positive left Homans sign. Bilateral 2+ dorsalis pedis pulses. Bilateral equal strength. No pallor, erythema, or ecchymosis noted. Varicose veins noted on left anterior stewart) Skin exam: Present: warm, dry, intact, normal color. Absent: rash Course Vital Signs 09/18/23 09:23 Temperature 97.8 F Pulse Rate 82 Respiratory 18 Rate Blood Pressure 138/74 O2 Sat by Pulse 98 Oximetry Medical Decision Making - Medical Decision Making Was pt. sent in by a medical professional or institution (, PA, RN PACU, urgent care, hospital, or fpc...) When possible be specific @ -No Did you speak to anyone other than the patient for history (EMS, parent, family, police, friend...)? What history was obtained from this source @ -No Did you review nursing and triage notes (agree or disagree)? Why? @ -I reviewed and agree with nursing and triage notes Were old charts reviewed (outside hosp., previous admission, EMS record, old EKG, old radiological studies, urgent care reports/EKG's, fpc records)? Report findings @ -No old charts were reviewed Differential Diagnosis (chest pain, altered mental status, abdominal pain women, abdominal pain men, vaginal bleeding, weakness, fever, dyspnea, syncope, headache, dizziness, GI bleed, back pain, seizure, CVA, palpatations, mental health, musculoskeletal)? @ -DVT, muscle strain/ spam, peripheral arterial disease, this list is not all inclusive EKG interpreted by me (3pts min.). @ -None X-rays interpreted by me (1pt min.). @ -None done CT interpreted by me (1pt min.). @ -None done U/S interpreted by me (1pt. min.). @ -Bilateral lower extremity ultrasound negative for DVTs What testing was considered but not performed or refused? (CT, X-rays, U/S, labs)? Why? @ -None What meds were considered but not given or refused? Why? @ -None Did you discuss the management of the patient with other professionals (professionals i.e. , PA, RN PACU, lab, RT, psych nurse, social sciences instructor, sealer dry cell, teacher, probation and parole officer, case fitter)? Give summary @ -No Was smoking cessation discussed for >3mins.? @ -No Was critical care preformed (if so, how long)? @ -No Were there social determinants of health that impacted care today? How? (Homelessness, low income, unemployed, alcoholism, drug addiction, transportation, low edu. Level, literacy, decrease access to med. care, correction, rehab)? @ -No Was there de-escalation of care discussed even if they declined (Discuss DNR or withdrawal of care, Hospice)? DNR status @ -No What co-morbidities impacted this encounter? (DM, HTN, Smoking, COPD, CAD, Cancer, CVA, ARF, Chemo, Hep., AIDS, mental health diagnosis, sleep apnea, morbid obesity)? @ -None Was patient admitted / discharged? Hospital course, mention meds given and route, prescriptions, significant lab abnormalities, going to OR and other pertinent info. @ -Patient is a 58-year-old male presenting to the ER with a chief complaint of left leg pain. On exam, patient had exquisitely tender left calf on palpation and 2+ dorsalis pedis pulses bilaterally. Patient received ketorolac IM with some pain relief. Bilateral lower extremity ultrasound negative for DVTs. Patient will be discharged home with a muscle relaxer. Patient educated on continuing conservative measures. And to follow up with PCP Undiagnosed new problem with uncertain prognosis? @ -No Drug Therapy requiring intensive monitoring for toxicity (Heparin, Nitro, Insulin, Cardizem)? @ -No Were any procedures done? @ -No Diagnosis/symptom? @ -Muscle strain/spasm Acute, or Chronic, or Acute on Chronic? @ -Acute Uncomplicated (without systemic symptoms) or Complicated (systemic symptoms)? @ -Uncomplicated Side effects of treatment? @ -No Exacerbation, Progression, or Severe Exacerbation? @ -No Poses a threat to life or bodily function? How? (Chest pain, [place], [place], pneumonia, PE, COPD, DKA, ARF, appy, cholecystitis, CVA, Diverticulitis, Homicidal, Suicidal, threat to staff... and all critical care pts) @ -No - Radiology Data Radiology results: report reviewed, image reviewed Disposition Clinical Impression: Muscle strain, Muscle spasm Disposition: HOME SELF-CARE Condition: Stable Instructions (If sedation given, give patient instructions): Muscle Spasm (ED) Additional Instructions: Please return to the Emergency Department if symptoms worsen or any other concerns. Prescriptions: Cyclobenzaprine [Flexeril] 10 mg PO TID PRN #15 tab PRN Reason: Muscle Spasm Is patient prescribed a controlled substance at d/c from ED?: No Referrals: Ramya Carrera MD [Primary Care Provider] - 1-2 days
[2023-09-18] MEDS ORDERED: KETOROLAC 15 MG/ML 1 ML VIAL IM STA (10:08)
--- NOTE | 2023-09-18 10:42 | US ---
EXAMINATION TYPE: US venous doppler duplex LE BI DATE OF EXAM: 09/18/2023 10:32 AM COMPARISON: NONE CLINICAL INDICATION: Male, 58 years old with history of pain; pain SIDE PERFORMED: Bilateral TECHNIQUE: The lower extremity deep venous system is examined utilizing real time linear array sonog rigoberto with graded compression, doppler sonography and color-flow sonography. VESSELS IMAGED: Common Femoral Vein Deep Femoral Vein Greater Saphenous Vein * Femoral Vein Popliteal Vein Small Saphenous Vein * Proximal Calf Veins (* superficial vessels) Right Leg: Negative for DVT Left Leg: Negative for DVT IMPRESSION: 1. Bilateral lower extremity ultrasound negative for deep venous thrombosis.
[2023-09-18 12:26] VITALS: BP 158/90; PULSE 66; RESP 16
== END 2023-09-18 12:10 | disposition home or self-care (01) ==
LOC: EC 09:21
DX: S86.212A Strain of muscle(s) and tendon(s) of anterior muscle group at lower leg level, left leg, initial encounter (principal); M62.831 Muscle spasm of calf; E11.51 Type 2 diabetes mellitus with diabetic peripheral angiopathy without gangrene; F17.290 Nicotine dependence, other tobacco product, uncomplicated; Z79.4 Long term (current) use of insulin; X58.XXXA Exposure to other specified factors, initial encounter
CPT/HCPCS: 93970; 99284; 96372; J1885

== ENCOUNTER 2023-10-06 12:09 | Emergency (ER) | payer OTHER ==
[2023-10-06 12:33] VITALS: RESP 18
[2023-10-06] MEDS ORDERED: KETOROLAC 15 MG/ML 1 ML VIAL IM STA (12:59)
--- NOTE | 2023-10-06 13:03 | ED ---
Lower Extremity Injury HPI - General Chief Complaint: Extremity Injury, Lower Stated Complaint: Left knee pain Time Seen by Provider: 10/06/23 12:46 Source: patient, RN notes reviewed Mode of arrival: ambulatory Limitations: no limitations - History of Present Illness Initial Comments: Patient is a 58-year-old male presenting to the ER with chief complaint of left knee pain. Patient was seen here a few weeks ago with similar complaint. He was discharged home with muscle relaxers. Patient states he has been taking a muscle relaxers with no relief. Patient reports that the pain is worse when he is sitting still in the car or at night. She states when he is moving he has no pain. He does report a few episodes of his leg giving out on him. He is also describing lower back pain starting this morning. Patient denies any bladder or bowel incontinence, IV drug use, radiating pain or paresthesias down his lower cavities. Patient denies any fevers, chills, night sweats, trauma. - Related Data Home Medications Medication Instructions Recorded Confirmed Cholecalciferol [Vitamin D3 (25 50 mcg PO DAILY 02/07/23 02/07/23 Mcg = 1000 Iu)] Ferrous Sulfate [Iron (65 MG 325 mg PO DAILY 02/07/23 02/07/23 Elemental)] Folic Acid 1 mg PO DAILY 02/07/23 02/07/23 Insulin Glargine,Hum.rec.anlog 30 units SQ HS 02/07/23 02/07/23 [Lantus Solostar Pen] Insulin Regular, Human [Novolin R] See Protocol SQ ACHS 02/07/23 02/07/23 Levothyroxine Sodium [Synthroid] 200 mcg PO DAILY 02/07/23 02/07/23 Losartan [Cozaar] 25 mg PO DAILY 02/07/23 02/07/23 Simvastatin [Zocor] 40 mg PO DAILY 02/07/23 02/07/23 oxyBUTYnin chloride 5 mg PO DAILY 02/07/23 02/07/23 Previous Rx's Medication Instructions Recorded INSULIN ASPART (NovoLOG) [NovoLOG 10 unit SQ AC-TID each 02/08/23 (formulary)] Pantoprazole [Protonix] 40 mg PO AC-BRKFST #30 tab 02/08/23 Cyclobenzaprine [Flexeril] 10 mg PO TID PRN #15 tab 09/18/23 Diclofenac Sodium [Voltaren 1 applic TOPICAL Q4-6H #100 gram 10/06/23 Arthritis Pain 1% Gel] Allergies Allergy/AdvReac Type Severity Reaction Status Date / Time No Known Allergies Allergy Verified 10/06/23 12:21 Review of Systems ROS Statement: Those systems with pertinent positive or pertinent negative responses have been documented in the HPI. ROS Other: All systems not noted in ROS Statement are negative. Past Medical History Past Medical History: Diabetes Mellitus History of Any Multi-Drug Resistant Organisms: None Reported Past Surgical History: No Surgical Hx Reported Past Anesthesia/Blood Transfusion Reactions: No Reported Reaction Past Psychological History: No Psychological Hx Reported Smoking Status: Vaper Past Alcohol Use History: None Reported Past Drug Use History: None Reported General Exam Limitations: no limitations General appearance: alert, in no apparent distress Respiratory exam: Present: normal lung sounds bilaterally. Absent: respiratory distress, wheezes, rales, rhonchi, stridor Cardiovascular Exam: Present: regular rate, normal rhythm, normal heart sounds. Absent: systolic murmur, diastolic murmur, rubs, gallop, clicks Extremities exam: Present: other (Left knee has full range of motion. There is pain with valgus force. There is no erythema or ecchymosis noted 2+ dorsalis pedis pulse bilaterally) Back exam: Present: normal inspection, tenderness (Lumbar spine) Neurological exam: Present: alert, oriented X3, CN II-XII intact Psychiatric exam: Present: normal affect, normal mood Skin exam: Present: warm, dry, intact, normal color. Absent: rash Course Vital Signs 10/06/23 12:19 Temperature 98 F Pulse Rate 72 Respiratory 18 Rate Blood Pressure 136/78 O2 Sat by Pulse 100 Oximetry Medical Decision Making - Medical Decision Making Was pt. sent in by a medical professional or institution (, PA, ASSISTANT HEAD CASHIER, urgent care, hospital, or halfway...) When possible be specific @ -No Did you speak to anyone other than the patient for history (EMS, parent, family, police, friend...)? What history was obtained from this source @ -No Did you review nursing and triage notes (agree or disagree)? Why? @ -I reviewed and agree with nursing and triage notes Were old charts reviewed (outside hosp., previous admission, EMS record, old EKG, old radiological studies, urgent care reports/EKG's, halfway records)? Report findings @ -Yes I reviewed old charts from 09/18/23. Lower extremity ultrasound was negative for DVTs and patient was prescribed Flexeril for symptom control. Differential Diagnosis (chest pain, altered mental status, abdominal pain women, abdominal pain men, vaginal bleeding, weakness, fever, dyspnea, syncope, headache, dizziness, GI bleed, back pain, seizure, CVA, palpatations, mental health, musculoskeletal)? @ -Differential Musculoskeletal: Muscular strain, contusion, ligament sprain, fracture, arthritis, septic arthritis, bursitis, cellulitis, muscle spasm, nerve compression, DVT, arterial occlusion, herpes zoster, electrolyte abnormality, tumor.... This is not meant to be in all inclusive list EKG interpreted by me (3pts min.). @ -None X-rays interpreted by me (1pt min.). @ -X-rays of the left knee showed osteoarthritic changes. There is possible calcifications indicative of CPPD. X-ray of the lumbar spine showed mild degenerative disc disease and facet arthropathy. There is no acute fractures, dislocations CT interpreted by me (1pt min.). @ -None done U/S interpreted by me (1pt. min.). @ -None done What testing was considered but not performed or refused? (CT, X-rays, U/S, labs)? Why? @ -None What meds were considered but not given or refused? Why? @ -None Did you discuss the management of the patient with other professionals (professionals i.e. , PA, ASSISTANT HEAD CASHIER, lab, RT, psych nurse, social work therapist, dragline mechanic, teacher, military source operations officer, case packer)? Give summary @ -No Was smoking cessation discussed for >3mins.? @ -No Was critical care preformed (if so, how long)? @ -No Were there social determinants of health that impacted care today? How? (Homelessness, low income, unemployed, alcoholism, drug addiction, trans portation, low edu. Level, literacy, decrease access to med. care, detention, rehab)? @ -No Was there de-escalation of care discussed even if they declined (Discuss DNR or withdrawal of care, Hospice)? DNR status @ -No What co-morbidities impacted this encounter? (DM, HTN, Smoking, COPD, CAD, Cancer, CVA, ARF, Chemo, Hep., AIDS, mental health diagnosis, sleep apnea, morbid obesity)? @ -None Was patient admitted / discharged? Hospital course, mention meds given and route, prescriptions, significant lab abnormalities, going to OR and other pertinent info. @ -Discharged. Upon examination the left knee was mildly tender on the medial joint line. X-rays obtained of the left knee showed osteoarthritic changes. There is no acute fractures or dislocations. Patient was also complaining of lumbar spine pain. On examination there is tenderness to the lumbar spine. X- ray lumbar spine showed mild degenerative disc disease and facet arthropathy. Patient received IM Toradol for pain control in the ER. I discussed with the patient the x-ray findings. Patient was prescribed Voltaren arthritis gel. I discussed with the patient to follow-up with orthopedics and PCP if pain persists. Patient will be discharged home in stable condition follow-up to orthopedics. Undiagnosed new problem with uncertain prognosis? @ -No Drug Therapy requiring intensive monitoring for toxicity (Heparin, Nitro, Insulin, Cardizem)? @ -No Were any procedures done? @ -No Diagnosis/symptom? @ -Osteoarthritis of left knee Acute, or Chronic, or Acute on Chronic? @ -Chronic Uncomplicated (without systemic symptoms) or Complicated (systemic symptoms)? @ -Uncomplicated Side effects of treatment? @ -No Exacerbation, Progression, or Severe Exacerbation? @ -No Poses a threat to life or bodily function? How? (Chest pain, [place], [place], pneumonia, PE, COPD, DKA, ARF, appy, cholecystitis, CVA, Diverticulitis, Homicidal, Suicidal, threat to staff... and all critical care pts) @ -No - Radiology Data Radiology results: report reviewed, image reviewed Disposition Clinical Impression: Osteoarthritis, Degenerative disc disease Disposition: HOME SELF-CARE Condition: Stable Instructions (If sedation given, give patient instructions): Osteoarthritis (ED) Additional Instructions: Please return to the Emergency Department if symptoms worsen or any other concerns. Prescriptions: Diclofenac Sodium [Voltaren Arthritis Pain 1% Gel] 1 applic TOPICAL Q4-6H #100 gram Is patient prescribed a controlled substance at d/c from ED?: No Referrals: Ramya Carrera MD [Primary Care Provider] - 1-2 days Barak Knight DO [Doctor of Osteopathic Medicine] - 1-2 days Time of Disposition: 14:58
--- NOTE | 2023-10-06 13:49 | XR ---
EXAMINATION TYPE: XR knee complete LT DATE OF EXAM: 10/06/2023 1:31 PM CLINICAL INDICATION:Male, 58 years old with history of pain; [facility] COMPARISON: None. TECHNIQUE: XR knee complete LT; examined in Frontal, lateral and oblique projections. FINDINGS: Mild/moderate tricompartmental osteoarthritis. Faint chondrocalcinosis the lateral compartm ent can be seen with CPPD. No acute fracture or dislocation. Possible small suprapatellar joint effus ion. IMPRESSION: 1. No acute osseous pathology. 2. Mild/moderate tricompartmental osteoarthritic changes. Possible CPPD. 3. Small joint effusion.
--- NOTE | 2023-10-06 14:32 | XR ---
EXAMINATION TYPE: XR lumbar spine 2 or 3V DATE OF EXAM: 10/06/2023 1:31 PM CLINICAL INDICATION:Male, 58 years old with history of pain; low back pain no injury COMPARISON: None TECHNIQUE: XR lumbar spine 2 or 3V - FINDINGS: Vertebral body heights are maintained. Disc interspacing is mildly narrowed L5-S1 otherwise normal. Mild facet arthrosis in the mid to lower lumbar spine. Normal alignment. Moderate atheroscle rotic calcification of the abdominal aorta. Mild/moderate stool in the visualized colon. IMPRESSION: 1. No evidence of acute fracture or malalignment. 2. Mild degenerative disc disease and facet arthrosis.
[2023-10-06 15:16] VITALS: BP 132/70; PULSE 76; TEMP 98.1
== END 2023-10-06 15:25 | disposition home or self-care (01) ==
LOC: EC 12:09
DX: M17.12 Unilateral primary osteoarthritis, left knee (principal); M51.36 Other intervertebral disc degeneration, lumbar region; E11.9 Type 2 diabetes mellitus without complications; F17.290 Nicotine dependence, other tobacco product, uncomplicated; Z79.4 Long term (current) use of insulin
CPT/HCPCS: 72100; 73562; 99284; 96372; J1885

== ENCOUNTER → 2023-12-17 | Outpatient (CLI) | payer OTHER ==
--- NOTE | 2023-12-17 15:57 | CTL ---
EXAMINATION TYPE: CT Low Dose Lung DATE OF EXAM ORDERED: 12/17/2023 HISTORY: Nicotine dependence. Lung cancer screening CT DLP: 106.[address] CTDI: 2.8 mGy Automated exposure control for dose reduction was used. SCREENING VISIT: Initial COMPARISON: None TECHNIQUE: Low dose computed tomography scan was performed through the chest at 1 mm thick sections a nd reconstructed images in the coronal plane at [address] DIAGNOSTIC QUALITY: Satisfactory FINDINGS: LUNG NODULES: Present, detailed below: 1. There is a pleural-based 0.6 cm density in the posterior left upper lung field. Series 3 image 74. 2. There is a 0.3 cm peripheral posterior lateral right upper lung field density. Series 3 image 108. LUNGS: COPD: Severity: None Fibrosis: Severity: None Lymph nodes: None Other findings: None RIGHT PLEURAL SPACE: Effusion: None Calcification: None Thickening: None Pneumothorax: None LEFT PLEURAL SPACE: Effusion: None Calcification: None Thickening: None Pneumothorax: None HEART: Heart Size: Normal Coronary calcification: Mild Pericardial effusion: None OTHER FINDINGS: Upper abdomen: Normal Bony thorax: Normal Supraclavicular region: Normal Other: Ascending thoracic aorta at the level the main pulmonary artery measures 3.3 cm. The main pul monary artery at the bifurcation measures 3.3 cm. IMPRESSION: 1. Couple small benign-appearing nodules. Follow-up low-dose CT chest one year recommended. FOLLOW UP CT CHEST RECOMMENDATION: Follow-up low-dose CT chest one year CT LUNG RAD: Lung-Rad 2 Benign Appearance or Behavior
== END | disposition home or self-care (01) ==
LOC: RADCTMAIN 13:51
PROVIDERS: ATTEND Family Medicine
DX: Z12.2 Encounter for screening for malignant neoplasm of respiratory organs (principal); F17.210 Nicotine dependence, cigarettes, uncomplicated
CPT/HCPCS: 71271

== ENCOUNTER 2024-11-23 21:36 | Emergency (ER) | payer OTHER ==
[2024-11-23 21:46] VITALS: RESP 18; TEMP 97.8
[2024-11-23 21:50] LABS: Glucose,Whole Blood 443 mg/dL (70-110)
--- NOTE | 2024-11-23 21:52 | ED ---
General Adult HPI - General Source: patient, RN notes reviewed Mode of arrival: ambulatory Limitations: no limitations <Rachele Duncan - Last Filed: 11/23/24 21:49> <Jazz Newton - Last Filed: 11/24/24 13:19> - General Chief complaint: Recheck/Abnormal Lab/Rx Stated complaint: Blood Sugar Time Seen by Provider: 11/23/24 21:49 - History of Present Illness Initial comments: Quick note: 59-year-old male with a past medical history of type 1 diabetes presents to the emergency department for elevated blood sugar readings. Patient reports that his monitor has been reading "high" today. He denies any recent illness, fever. (Rachele Duncan) Patient is a 59-year-old gentleman with a past medical history of type 2 diabetes presenting today for hyperglycemia. Patient states that earlier today he "ate food he shouldn't have" stating he ate ravioli and grilled cheese and his glucometer read "high". He took 10 units of subcutaneous insulin and sat down to watch the football game however chcf through the football game he continued to have high blood sugars so presented to the ER. While awaiting treatment in the waiting room he developed heart burn, states has hx of heart burn and typically takes omeprazole. He denies recent illness, new urinary frequency, changes in vision, fevers, chills, vomiting, nausea, chest pain, shortness of breath. Denies additional symptoms. (Jazz Newton) - Related Data Home Medications Medication Instructions Recorded Confirmed Cholecalciferol [Vitamin D3 (25 50 mcg PO DAILY 02/07/23 02/07/23 Mcg = 1000 Iu)] Ferrous Sulfate [Iron (65 MG 325 mg PO DAILY 02/07/23 02/07/23 Elemental)] Folic Acid 1 mg PO DAILY 02/07/23 02/07/23 Insulin Glargine,Hum.rec.anlog 30 units SQ HS 02/07/23 02/07/23 [Lantus Solostar Pen] Insulin Regular, Human [NovoLIN R] See Protocol SQ ACHS 02/07/23 02/07/23 Levothyroxine Sodium [Synthroid] 200 mcg PO DAILY 02/07/23 02/07/23 Losartan [Cozaar] 25 mg PO DAILY 02/07/23 02/07/23 Simvastatin [Zocor] 40 mg PO DAILY 02/07/23 02/07/23 oxyBUTYnin chloride 5 mg PO DAILY 02/07/23 02/07/23 Previous Rx's Medication Instructions Recorded INSULIN ASPART (NovoLOG) [NovoLOG 10 unit SQ AC-TID each 02/08/23 (formulary)] Pantoprazole [Protonix] 40 mg PO AC-BRKFST #30 tab 02/08/23 Cyclobenzaprine [Flexeril] 10 mg PO TID PRN #15 tab 09/18/23 Diclofenac Sodium [Voltaren 1 applic TOPICAL Q4-6H #100 gram 10/06/23 Arthritis Pain 1% Gel] Allergies Allergy/AdvReac Type Severity Reaction Status Date / Time No Known Allergies Allergy Verified 11/23/24 21:47 Review of Systems ROS Other: All systems not noted in ROS Statement are negative. <Rachele Duncan - Last Filed: 11/23/24 21:49> ROS Other: All systems not noted in ROS Statement are negative. <Jazz Newton - Last Filed: 11/24/24 13:19> ROS Statement: Those systems with pertinent positive or pertinent negative responses have been documented in the HPI. Past Medical History Past Medical History: Diabetes Mellitus History of Any Multi-Drug Resistant Organisms: None Reported Past Surgical History: No Surgical Hx Reported Past Anesthesia/Blood Transfusion Reactions: No Reported Reaction Past Psychological History: No Psychological Hx Reported Smoking Status: Current every day smoker Past Alcohol Use History: None Reported Past Drug Use History: None Reported <Rachele Duncan - Last Filed: 11/23/24 21:49> General Exam Limitations: no limitations <Rachele Duncan - Last Filed: 11/23/24 21:49> <Jazz Newton - Last Filed: 11/24/24 13:19> - General Exam Comments Initial Comments: Visual Physical Exam Vital signs reviewed General: Well-appearing, nontoxic, no acute distress. Head: Normocephalic, atraumatic Eyes: PERRLA, EOMI ENT: Airway patent Chest: Nonlabored breathing Skin: No visual rash, normal skin tone Neuro: Alert and oriented 3 Musculoskeletal: No gross abnormalities (Rachele Duncan) PE: CONSTITUTIONAL: No apparent distress, well appearing SKIN: Warm, dry, no jaundice, hives or petechiae EYES: Pupils are equally round, extraocular movements intact without nystagmus, clear conjunctiva, non-icteric sclera HENT: Normocephalic, atraumatic, moist mucus membranes, oropharynx clear without exudates NECK: , Full range of motion, normal appearance PULMONARY: Clear to auscultation without wheezes, rhonchi, or rales, normal excursion, no accessory muscle use and no stridor CARDIOVASCULAR: Regular rate, rhythm, normal S1 and S2. No appreciated murmurs, rubs or gallops. Strong radial pulses with intact distal perfusion. No lower extremity edema GASTROINTESTINAL: Soft, active bowel sounds throughout, non-tender, non- distended, no palpable masses, no rebound or guarding. No hepatosplenomegaly MUSCULOSKELETAL: Extremities have no gross deformity, no edema, redness, or swelling. NEUROLOGIC:_a/o x 3, GCS 15, normal mentation and speech. Moves all extremities x 4 without motor or sensory deficit PSYCHIATRIC:_normal mood and affect, thought process is clear and linear ( Jazz Newton) Course Vital Signs 11/23/24 11/24/24 21:44 01:03 Temperature 97.8 F Pulse Rate 87 68 Respiratory 18 18 Rate Blood Pressure 193/97 171/92 O2 Sat by Pulse 96 98 Oximetry Medical Decision Making <Rachele Duncan - Last Filed: 11/23/24 21:49> - Lab Data Result diagrams: 11/23/24 22:26 11/23/24 22:08 <Jazz Newton - Last Filed: 11/24/24 13:19> - Medical Decision Making Quick note preformed and electronically signed by Rachele Duncan PA-C (Rachele Duncan) Was pt. sent in by a medical professional or institution ([facility]WAINE Thakkar, LOOM MECHANIC, urgent care, hospital, or penitentiary...) When possible be specific @ -No Did you speak to anyone other than the patient for history (EMS, parent, family, police, friend...)? What history was obtained from this source @ -No Did you review nursing and triage notes (agree or disagree)? Why? @ -I reviewed and agree with nursing and triage notes Were old charts reviewed (outside hosp., previous admission, EMS record, old EKG, old radiological studies, urgent care reports/EKG's, penitentiary records)? Report findings @ -Medical records reviewed Differential Diagnosis (chest pain, altered mental status, abdominal pain women, abdominal pain men, vaginal bleeding, weakness, fever, dyspnea, syncope, headache, dizziness, GI bleed, back pain, seizure, CVA, palpatations, mental health, musculoskeletal)? @Differential diagnosis remains broad over top considerations include hyperglycemia secondary to glucometer malfunction, dietary causes, DKA, HHS, insulin underdosing, infection, this is not an all-inclusive list EKG interpreted by me (3pts min.). @ -As above X-rays interpreted by me (1pt min.). @ -None done CT interpreted by me (1pt min.). @ -None done U/S interpreted by me (1pt. min.). @ -None done What testing was considered but not performed or refused? (CT, X-rays, U/S, labs)? Why? @ -None What meds were considered but not given or refused? Why? @ -None Did you discuss the management of the patient with other professionals (professionals i.e. , PA, LOOM MECHANIC, lab, RT, psych nurse, older adult social work specialist, live hanger, teacher, classifications officer cc/cm, therapeutic case manager)? Give summary @ -No Was smoking cessation discussed for >3mins.? @ -No Was critical care preformed (if so, how long)? @ -No Were there social determinants of health that impacted care today? How? (Homelessness, low income, unemployed, alcoholism, drug addiction, transportation, low edu. Level, literacy, decrease access to med. care, skilled nursing, rehab)? @ -No Was there de-escalation of care discussed even if they declined (Discuss DNR or withdrawal of care, Hospice)? @ -No What co-morbidities impacted this encounter? (DM, HTN, Smoking, COPD, CAD, Cancer, CVA, ARF, Chemo, Hep., AIDS, mental health diagnosis, sleep apnea, morbid obesity)? @DM Was patient admitted / discharged? Hospital course, mention meds given and route, prescriptions, significant lab abnormalities, going to OR and other pertinent info. @Discharged- Pt is a pleasant 59-year-old gentleman history of diabetes presenting today for hyperglycemia after eating more carbohydrates than he normally would. Triage labs were obtained by PA that saw patient on arrival as part of triage protocol. Pt seen and evaluated in triage recliner due to ED at surge capacity. Labs reviewed, showed hyperglycemia blood glucose on arrival 443, urine showed negative ketones, 4+ glucose, negative acetone. On my assessment patient resting comfortably in NAD. Discussed with him plan for IV fluids, IV insulin and ultimately discharge home if blood sugar more well controlled. Patient is agreeable and comfortable plan of care. On recheck, blood glucose 123 s/p 2 liters IV fluids and IV insulin. Heartburn improved, he is comfortable w/ discharge home this point. In my medical judgment there is currently no evidence of an immediate life-threatening or surgical condition. Discharge is therefore indicated at this time. Discharge treatment instructions, follow up instructions, and appropriate e mergency department return precautions were discussed with the patient and/or medical decision maker. Patient and/or medical decision maker expressed understanding of and agreed with the treatment plan, follow up instructions, and emergency department return precaution. All patient's and/or medical decision maker's questions were answered. Undiagnosed new problem with uncertain prognosis? @ -No Drug Therapy requiring intensive monitoring for toxicity (Heparin, Nitro, Insulin, Cardizem)? @ -No Were any procedures done? @ -No Diagnosis/symptom? @Hyperglycemia Acute, or Chronic, or Acute on Chronic? @Acute Uncomplicated (without systemic symptoms) or Complicated (systemic symptoms)? @Uncomplicated Side effects of treatment? @ -No Exacerbation, Progression, or Severe Exacerbation? @ -No Poses a threat to life or bodily function? How? (Chest pain, USA, ID, pneumonia, PE, COPD, DKA, ARF, appy, cholecystitis, CVA, Diverticulitis, Homicidal, Suicidal, threat to staff... and all critical care pts) @ -No (Jazz Newton) - Lab Data Lab Results 11/23/24 11/23/24 11/23/24 Range/Units 21:48 22:08 22:23 WBC (3.8-10.6) k/uL RBC (4.30-5.90) m/uL Hgb (13.0-17.5) gm/dL Hct (39.0-53.0) % MCV (80.0-100.0) fL MCH (25.0-35.0) pg MCHC (31.0-37.0) g/dL RDW (11.5-15.5) % Plt Count (150-450) k/uL MPV Neutrophils % % Lymphocytes % % Monocytes % % Eosinophils % % Basophils % % Neutrophils # (1.3-7.7) k/uL Lymphocytes # (1.0-4.8) k/uL Monocytes # (0-1.0) k/uL Eosinophils # (0-0.7) k/uL Basophils # (0-0.2) k/uL Sodium 133 L (137-145) mmol/L Potassium 4.6 (3.5-5.1) mmol/L Chloride 102 (98-107) mmol/L Carbon Dioxide 22 (22-30) mmol/L Anion Gap 9 mmol/L BUN 33 H (9-20) mg/dL Creatinine 1.26 H (0.66-1.25) mg/dL Est GFR (CKD-EPI)AfAm 73 (>60 ml/min/1.73 sqM) Est GFR (CKD-EPI)NonAf 63 (>60 ml/min/1.73 sqM) Glucose 401 H (74-99) mg/dL POC Glucose (mg/dL) 443 H (70-110) mg/dL POC Glu Cloth Printing Inspector ID Casrto Brielle Calcium 9.6 (8.4-10.2) mg/dL Magnesium 1.8 (1.6-2.3) mg/dL Total Bilirubin 0.2 (0.2-1.3) mg/dL AST 28 (17-59) U/L ALT 25 (4-49) U/L Alkaline Phosphatase 125 (38-126) U/L Total Protein 6.5 (6.3-8.2) g/dL Albumin 4.2 (3.5-5.0) g/dL Urine Color Light Yellow Urine Appearance Clear (Clear) Urine pH 6.0 (5.0-8.0) Ur Specific Cameron 1.030 (1.001-1.035) Urine Protein Negative (Negative) Urine Glucose (UA) 4+ H (Negative) Urine Ketones Negative (Negative) Urine Blood Negative (Negative) Urine Nitrite Negative (Negative) Urine Bilirubin Negative (Negative) Urine Urobilinogen <2.0 (<2.0) mg/dL Ur Leukocyte Esterase Negative (Negative) Acetone, Qual Negative (Negative) 11/23/24 11/24/24 11/24/24 Range/Units 22:26 00:28 01:23 WBC 10.2 (3.8-10.6) k/uL RBC 3.68 L (4.30-5.90) m/uL Hgb 12.0 L (13.0-17.5) gm/dL Hct 35.0 L (39.0-53.0) % MCV 95.1 (80.0-100.0) fL MCH 32.7 (25.0-35.0) pg MCHC 34.5 (31.0-37.0) g/dL RDW 12.4 (11.5-15.5) % Plt Count 293 (150-450) k/uL MPV 7.0 Neutrophils % 72 % Lymphocytes % 17 % Monocytes % 7 % Eosinophils % 3 % Basophils % 0 % Neutrophils # 7.3 (1.3-7.7) k/uL Lymphocytes # 1.7 (1.0-4.8) k/uL Monocytes # 0.7 (0-1.0) k/uL Eosinophils # 0.3 (0-0.7) k/uL Basophils # 0.0 (0-0.2) k/uL Sodium (137-145) mmol/L Potassium (3.5-5.1) mmol/L Chloride (98-107) mmol/L Carbon Dioxide (22-30) mmol/L Anion Gap mmol/L BUN (9-20) mg/dL Creatinine (0.66-1.25) mg/dL Est GFR (CKD-EPI)AfAm (>60 ml/min/1.73 sqM) Est GFR (CKD-EPI)NonAf (>60 ml/min/1.73 sqM) Glucose (74-99) mg/dL POC Glucose (mg/dL) 320 H 123 H (70-110) mg/dL POC Glu Cloth Printing Inspector ID Tariq Amenda Tariq Amenda Calcium (8.4-10.2) mg/dL Magnesium (1.6-2.3) mg/dL Total Bilirubin (0.2-1.3) mg/dL AST (17-59) U/L ALT (4-49) U/L Alkaline Phosphatase (38-126) U/L Total Protein (6.3-8.2) g/dL Albumin (3.5-5.0) g/dL Urine Color Urine Appearance (Clear) Urine pH (5.0-8.0) Ur Specific Cameron (1.001-1.035) Urine Protein (Negative) Urine Glucose (UA) (Negative) Urine Ketones (Negative) Urine Blood (Negative) Urine Nitrite (Negative) Urine Bilirubin (Negative) Urine Urobilinogen (<2.0) mg/dL Ur Leukocyte Esterase (Negative) Acetone, Qual (Negative) Disposition <Rachele Duncan - Last Filed: 11/23/24 21:49> Is patient prescribed a controlled substance at d/c from ED?: No <Jazz - Last Filed: 11/24/24 13:19> Clinical Impression: Hyperglycemia Disposition: HOME SELF-CARE Condition: Good Instructions (If sedation given, give patient instructions): Diabetic Hyperglycemia (ED) Additional Instructions: Every disease is a spectrum and a small chance still exists that a serious condition could develop, for this reason, please monitor yourself closely for new, changing or worsening symptoms, symptoms that persist beyond 48 hours, changes in vision, urinating more than normal, fever, inability to tolerate/keep down fluids or your medications, inability to follow up with outpatient providers as instructed and should you experience these symptoms or should you have any further concerns for your wellbeing please return to the ED or call 911 immediately. Please take your medications as prescribed. Please decrease your carbohydrate intake and sugar intake. PLEASE call your primary care physician as soon as possible to arrange / discuss plan for followup appointment. Appointment in the next 1-3 days is strongly encouraged if possible. PLEASE let us know here before you leave if there is anything further we can do to be of any assistance. Take care and feel Better! Referrals: Ramya Carrera MD [Primary Care Provider] - 1-2 days
[2024-11-23 22:37] LABS: Basophils % (A) 0 %; Eosinophils # (A) 0.3 k/uL (0-0.7); Eosinophils % (A) 3 %; Lymphocytes # (A) 1.7 k/uL (1.0-4.8); Lymphocytes % (A) 17 %; MCH 32.7 pg (25.0-35.0); MCHC 34.5 g/dL (31.0-37.0); MCV 95.1 fL (80.0-100.0); Monocytes # (A) 0.7 k/uL (0-1.0); Monocytes % (A) 7 %; Neutrophils # (A) 7.3 k/uL (1.3-7.7); Neutrophils % (A) 72 %; Platelet Count 293 k/uL (150-450); RBC 3.68 m/uL (4.30-5.90); RDW 12.4 % (11.5-15.5); WBC 10.2 k/uL (3.8-10.6)
[2024-11-23 22:42] LABS: Appearance,Urine Clear (Clear); Bilirubin,Urine Negative (Negative); Blood,Urine Negative (Negative); Color,Urine Light Yellow; Glucose,Urine (UA) 4+ (Negative); Ketones,Urine Negative (Negative); Leukocyte Esterase,Urine Negative (Negative); Nitrite,Urine Negative (Negative); Protein,Urine Negative (Negative); Urobilinogen,Urine <2.0 mg/dL (<2.0)
[2024-11-23 22:53] LABS: ALT 25 U/L (4-49); AST 28 U/L (17-59); African American GFR (CKD) 73 (>60 ml/min/1.73 sqM); Albumin 4.2 g/dL (3.5-5.0); Alkaline Phosphatase 125 U/L (38-126); Anion Gap 9 mmol/L; Blood Urea Nitrogen 33 mg/dL (9-20); Calcium 9.6 mg/dL (8.4-10.2); Carbon Dioxide 22 mmol/L (22-30); Chloride 102 mmol/L (98-107); Glucose 401 mg/dL (74-99); Magnesium 1.8 mg/dL (1.6-2.3); Non-African American GFR(CKD) 63 (>60 ml/min/1.73 sqM); Potassium 4.6 mmol/L (3.5-5.1); Sodium 133 mmol/L (137-145); Total Bilirubin 0.2 mg/dL (0.2-1.3); Total Protein 6.5 g/dL (6.3-8.2)
[2024-11-24] MEDS: SODIUM CHLORIDE 0.9% 2,000 ML IV ONE (00:12)
[2024-11-24] MEDS ORDERED: MAG HYDROX/AL HYDROX/SIMETH 30 ML CUP PO PRN (00:21)
[2024-11-24] MEDS: FAMOTIDINE 20 MG TAB PO STA (00:30)
[2024-11-24] MEDS: PANTOPRAZOLE 40 MG TABLET PO STA (00:30)
[2024-11-24] MEDS: INSULIN REGULAR 100 UNIT/ML VIAL (IV) IV ONE (00:31)
[2024-11-24 00:39] LABS: Glucose,Whole Blood 320 mg/dL (70-110)
[2024-11-24 01:04] VITALS: BP 171/92; PULSE 68
[2024-11-24 01:24] LABS: Glucose,Whole Blood 123 mg/dL (70-110)
== END 2024-11-24 01:33 | disposition home or self-care (01) ==
LOC: EC 21:36
DX: E10.65 Type 1 diabetes mellitus with hyperglycemia (principal); I10 Essential (primary) hypertension; F17.200 Nicotine dependence, unspecified, uncomplicated; Z79.4 Long term (current) use of insulin; Z79.899 Other long term (current) drug therapy
CPT/HCPCS: 36415; 80053; 81003; 82009; 83735; 85025; 96360; 99283

== ENCOUNTER → 2025-02-11 | Outpatient (CLI) | payer OTHER ==
--- NOTE | 2025-02-11 11:56 | XR ---
EXAMINATION TYPE: XR shoulder complete BILAT DATE OF EXAM: 02/11/2025 11:42 AM COMPARISON: None CLINICAL INDICATION: Male, 59 years old with history of M25.511, M25.512; PHH, pain TECHNIQUE: XR shoulder complete BILAT; examined in AP, internally rotated and scapular Y projections. FINDINGS: No evidence of acute osseous pathology, joint dislocation, or soft tissue swelling. The remaining po rtions of the visualized chest are unremarkable. Mild degeneration changes of the acromion and dista l clavicle bilaterally. IMPRESSION: 1. No acute osseous pathology. 2. Mild bilateral shoulder osteoarthrosis. [facility], , 02/11/2025 11:53 AM
== END | disposition home or self-care (01) ==
LOC: RADXRMAIN 11:25
PROVIDERS: ATTEND Registered Nurse
DX: M19.012 Primary osteoarthritis, left shoulder (principal); M19.011 Primary osteoarthritis, right shoulder

== ENCOUNTER → 2025-03-26 | Outpatient (CLI) | payer OTHER ==
[2025-03-26 08:41] LABS: African American GFR (CKD) 89 (>60 ml/min/1.73 sqM); Blood Urea Nitrogen 27 mg/dL (9-20); Non-African American GFR(CKD) 77 (>60 ml/min/1.73 sqM)
--- NOTE | 2025-03-26 09:45 | CTL ---
EXAMINATION TYPE: CT Low Dose Lung DATE OF EXAM: 03/26/2025 9:36 AM COMPARISON: 12/17/2023 CLINICAL INDICATION: Male, 59 years old with history of E041 R768 R634 [id number] E161 [id number], curren t smoker 1 PPD 50 years, History of tobacco use. TECHNIQUE: Low Dose CT Lung Screening, Low dose computed tomography scan was performed through the est at 1 millimeter thick sections and reconstructed images in the coronal plane at 1 mm thick sectio ns. IV CONTRAST USED: None. SCREENING VISIT: Second CT DLP: 70.7 mGycm, Automated exposure control for dose reduction was used. CT CTDI: 1.9 mGy FINDINGS: CT DIAGNOSTIC QUALITY: Satisfactory LUNG NODULES: There are couple of scattered sub-5 mm pulmonary nodules unchanged from prior study. LUNGS: COPD: Severity: Mild Fibrosis: Severity:None Lymph nodes: None Other findings: None RIGHT PLEURAL SPACE: Effusion: None Calcification: None Thickening: None Pneumothorax: None LEFT PLEURAL SPACE: Effusion: None Calcification: None Thickening: None Pneumothorax: None HEART: * Size within normal limits. * Moderate coronary calcifications. OTHER FINDINGS: Upper abdomen: No significant abnormality Bony thorax: Degenerative changes Supraclavicular region: No significant abnormalityOther: No significant abnormalityI IMPRESSION: 1. Stable scattered sub-5 mm pulmonary nodules. 2. Mild emphysema. CT LUNG RAD AND CT CHEST RECOMMENDATION: Lung-Rad 2 Benign Appearance or Behavior: Continue annual sc reening with LDCT in 12 months. S Modifier (other clinically significant findings): [facility], , 03/26/2025 9:43 AM
--- NOTE | 2025-03-26 10:07 | CT ---
EXAMINATION TYPE: CT abdomen wo/w con DATE OF EXAM: 03/26/2025 9:55 AM COMPARISON: None. CLINICAL INDICATION: Male, 59 years old with history of E041 R768 R634 [id number] E161 Z122 [id number], weight loss, amylase deficiency, hyperinsulinemia. 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 TECHNIQUE:CT scan of the abdomen is performed without Oral Contrast and without and with IV Contrast, patient injected with 100 ml mL of Isovue 300. CT DLP: 545.30 mGycm, Automated exposure control for dose reduction was used. FINDINGS: LUNG BASES-: No visible nodule. No infiltrate. LIVER/GB: No calcified gallstones. Mild hepatic steatosis. No space occupying hepatic lesion. Bili geronimo tree is of normal caliber. PANCREAS: No inflammation. No distinct mass. SPLEEN: No splenic enlargement. No lesion seen. ADRENALS: No nodule. No thickening. KIDNEYS/BLADDER: No hydronephrosis. No nephrolithiasis. No distinct renal mass. Urinary bladder g rossly unremarkable. BOWEL: Normal appendix. Normal bowel caliber. No inflammation. LYMPH NODES: No greater than 1cm abdominal or pelvic lymph nodes are appreciated. AORTA: No significant abnormality. OSSEOUS STRUCTURES: No significant abnormality is seen. OTHER: No significant additional abnormality is seen. IMPRESSION: 1. No significant abnormality to account for the patient's symptoms. [facility], , 03/26/2025 10:04 AM
--- NOTE | 2025-03-26 10:26 | US ---
EXAMINATION TYPE: US thyroid st tissue head/neck DATE OF EXAM: 03/26/2025 COMPARISON: NONE CLINICAL INDICATION: Male, 59 years old with history of E041 THY NODE; Pt states abnormal labs, histo ry of thyroid meds x many years TECHNIQUE: Grayscale and color Doppler imaging of the thyroid gland. FINDINGS: GLAND SIZE: Right Lobe: 4.6 x 1.9 x 1.4 cm Overall Parenchyma: heterogeneous Left Lobe: 3.9 x 1.5 x 1.2 cm Overall Parenchyma: heterogeneous Isthmus Thickness: 0.4 cm NODULES RIGHT: # of nodules measured on right: 0 LEFT: # of nodules measured on left: 0 ISTHMUS: # of nodules measured in the isthmus: 0 Bilateral neck scanned, no evidence of lymphadenopathy. Heterogeneous, hypervascular thyroid bilatera lly. IMPRESSION: Diffuse glandular heterogeneity and hypervascularity. Correlate for thyroiditis. Highest TI-RADS level nodule reported: 2017 ACR TI-RADS LEVEL: TI-RADS assessment score and recommendation for follow-up based on appropriate scoring and treatment protocols. TR3: If nodule size is ? 2.5 cm, FNA is recommended. If nodule size is ? 1.5 cm, follow-up imaging at 1, 3, and 5 years is recommended. TR4: If nodule size is ? 1.5 cm, FNA is recommended. If nodule size is ? 1.0 cm, follow-up imaging at 1, 2, 3, and 5 years is recommended. TR5: If nodule size is ? 1.0 cm, FNA is recommended. If nodule size is ? 0.5 cm, annual follow-up for up to 5 years is recommended. [email or web address] [facility], , 03/26/2025 10:24 AM
== END | disposition home or self-care (01) ==
LOC: RADCTMAIN 07:54
PROVIDERS: ATTEND Family Medicine
DX: Z12.2 Encounter for screening for malignant neoplasm of respiratory organs (principal); E88.09 Other disorders of plasma-protein metabolism, not elsewhere classified; F17.210 Nicotine dependence, cigarettes, uncomplicated; R63.4 Abnormal weight loss; E16.1 Other hypoglycemia; E04.1 Nontoxic single thyroid nodule; R76.8 Other specified abnormal immunological findings in serum; J43.9 Emphysema, unspecified; R91.8 Other nonspecific abnormal finding of lung field; E07.89 Other specified disorders of thyroid
CPT/HCPCS: 82565; 84520; 76536; 74170; 36415; 71271; Q9967